=== PATIENT | male | born 1940 | race Caucasian/White ===

== ENCOUNTER → 2019-01-09 08:02 | Outpatient (CLI) | payer OTHER, SELFPAY ==
--- NOTE | 2019-01-09 | DI.ECHO.S_ITS ---
[facility]---------+ [facility] +---------+ : : [address] [place] : : : : [phone] : : : : Phone: [phone]+ Echocardiogram Report + + :Name: GIANNA RODRIGUEZ Study Date: 01/09/2019 Height: 67 in : :[facility] Weight: 170 lb : : Gender: Male BSA: 1.9 m2 : :: 1940 Age: 78 yrs BP: 162/70 mmHg: :Reason For Study: QTC : : Performed By: Whitney Sanchez : :Referring: KAYA GODFREY : + + Interpretation Summary Overall left ventricular systolic function is preserved with the ejection fraction visually estimated to be 55-60% with continued severe hypokinesis in the proximal third of the inferior wall, extending into the proximal inferoposterior wall that appears unchanged from the previous echocardiogram but overall global contractility appears to be slightly more dynamic. There are no other focal wall motion abnormalities. Diastolic function could not be accurately assessed due to contradictory data but is likely unchanged compared to the previous study. The right ventricle grossly appears normal in size with probable normal systolic function and is unchanged compared to the previous study. The right ventricular systolic pressure is estimated to be at least 27 mmHg based on an estimated right atrial pressure of 3 mm Hg. The left atrium is severely dilated and right atrium is moderately dilated. There is moderate aortic valve sclerosis but there is no hemodynamically significant valvular aortic stenosis and the aortic valve appears unchanged compared to the previous study. There is no significant valvular heart disease. The ascending aorta and aortic arch are at the upper limits of normal in size. The patient was in sinus bradycardia with heart rates between 42-46 bpm during the exam which is slower compared to the previous study. Procedure: A two-dimensional transthoracic echocardiogram with color flow and Doppler was performed. The study quality was technically adequate. Comparison is made with the echocardiogram of 05-14-18. The patient was in sinus bradycardia with heart rates between 42-46 bpm during the exam. This is slower compared to the previous study. Left Ventricle: The left ventricle is normal in size. There is normal left ventricular wall thickness. Overall left ventricular systolic function is preserved. The ejection fraction is estimated to be 55-60%. There is severe hypokinesis in the proximal third of the inferior wall, extending into the proximal inferoposterior wall that appeared unchanged from the previous echocardiogram but overall global contractility appears to be slightly more dynamic. There are no other focal wall motion abnormalities. Diastolic function could not be accurately assessed due to contradictory data. This is unchanged compared to the previous study. Right Ventricle: The right ventricle grossly appears normal in size with probable normal systolic function. This is unchanged compared to the previous study. Atria: The left atrium is severely dilated. The right atrium is moderately dilated. The interatrial septum is intact with no evidence for an atrial septal defect. Mitral Valve: The mitral valve is normal in structure and function. There is trace mitral regurgitation. Aortic Valve: There is moderate aortic valve sclerosis. The aortic valve is moderately calcified. There is mildly reduced leaflet mobility. There is no hemodynamically significant valvular aortic stenosis. This is unchanged compared to the previous study. There is trace aortic regurgitation. Tricuspid Valve: The tricuspid valve is normal in structure and function. There is trace tricuspid regurgitation. The right ventricular systolic pressure is estimated to be at least 27 mmHg based on an estimated right atrial pressure of 3 mm Hg. Pulmonic Valve: The pulmonic valve is normal in structure and function. There is no pulmonic valvular regurgitation. There is no significant valvular heart disease. Great Vessels: The aortic root is normal size. The ascending aorta is at the upper limits of normal in size. The aortic arch is at the upper limits of normal in size. The IVC is of normal diameter and collapses greater than 50% with a sniff. This suggests a low right atrial pressure of 3 mm Hg. Pericardium/ Pleura There is no pericardial effusion. There is no pleural effusion. MMode/2D Measurements & Calculations LVIDd: 5.2 cm Ao root diam: 3.3 cm LVIDs: 3.7 cm Aortic Jxn: 2.4 cm FS: 29.4 % asc Aorta Diam: 3.4 cm EPSS: 0.93 cm Ao Arch Diam (Prox Trans): 3.0 cm IVSd: 0.98 cm LVPWd: 1.1 cm LV álvarez. diameter/BSA (cm/m^2): 2.7 LV sys. diameter/BSA (cm/m^2): 1.9 LA dimension: 4.6 cm RA long axis: 5.4 cm LA A2 area: 28.0 cm2 RA area: 23.3 cm2 LA A4 area: 26.3 cm2 RA vol: 84.9 ml LA length (vol): 5.5 cm RA : 45.0 ml/m2 LA vol: 113.7 ml IVC diam: 1.8 cm LA vol index: 60.2 ml/m2 RVDd major: 5.9 cm RVD1 (basal): 3.5 cm RVD2 (mid): 2.1 cm Doppler Measurements & Calculations Ao V2 max: 177.8 cm/sec MV E max zander: 69.3 cm/sec Ao V2 mean: 114.1 cm/sec MV A max zander: 43.5 cm/sec Ao max P.6 mmHg MV E/A: 1.6 Ao mean P.0 mmHg Med Peak E' Zander: 4.1 cm/sec Ao V2 VTI: 44.9 cm E/E' med: 17.0 Lat Peak E' Zander: 7.6 cm/sec E/E' lat: 9.1 E/e' average: 13.1 MV dec time: 0.23 sec MV P1/2t: 68.8 msec TR max zander: 245.0 cm/sec MV P1/2t max zander: 70.0 cm/sec TR max P.0 mmHg MVA(P1/2t): 3.2 cm2 PA V2 max: 78.5 cm/sec PA V2 mean: 50.0 cm/sec PA mean P.2 mmHg PA Accel Time: 0.13 sec Reading Physician:ROSA
== END ==
PROVIDERS: Visit Provider Physician Assistant
DX: I35.8 Other nonrheumatic aortic valve disorders (principal); I51.9 Heart disease, unspecified
CPT/HCPCS: 93306